=== PATIENT | male | born 1965 | race Caucasian/White ===

== ENCOUNTER 2018-11-20 17:15 | Emergency (ER) | payer OTHER ==
--- NOTE | 2018-11-20 17:21 | PDOC ---
Rapid Medical Evaluation Time Seen by Provider: 11/20/18 17:20 Medical Evaluation: Allergies Allergy/AdvReac Type Severity Reaction Status Date / Time No Known Allergies Allergy Verified 11/20/18 17:19 11/20/18 17:20 I have performed a brief in-person evaluation of this patient. The patient presents with a chief complaint of: abrasion to L leg 2/2 injury yesterday, here because site "keeps bleeding", pmhx unclear Pertinent physical exam findings:abrasion to L leg, bleeding controlled I have ordered the following:nothing The patient will proceed to the ED for further evaluation Discharge Disposition - Diagnosis Leg abrasion Qualifiers: Encounter type: initial encounter Laterality: left Qualified Code(s): S80.812A - Abrasion, left lower leg, initial encounter - Referrals - Patient Instructions - Post Discharge Activity
[2018-11-20 17:22] VITALS: BP 141/87; PULSE 97; TEMP 97.7; BMI 66.1
--- NOTE | 2018-11-20 19:31 | PDOC ---
History of Present Illness - General Chief Complaint: Abrasion Stated Complaint: INJ TO LEFT LEG AND FOOT Time Seen by Provider: 11/20/18 17:20 History Source: Patient Exam Limitations: No Limitations Past History - Travel Traveled outside of the country in the last 30 days: No Close contact w/someone who was outside of country & ill: No - Past Medical History Allergies/Adverse Reactions: Allergies Allergy/AdvReac Type Severity Reaction Status Date / Time No Known Allergies Allergy Verified 11/20/18 17:19 Cardiac Disorders: Yes COPD: No - Immunization History Immunization Up to Date: (UNKNOWN) - Suicide/Smoking/Psychosocial Hx Smoking History: Never smoked Hx Alcohol Use: No Drug/Substance Use Hx: No Review of Systems - Review of Systems Able to Perform ROS?: Yes Comments:: 11/20/18 19:26 CONSTITUTIONAL: Absent: fever, chills, diaphoresis, generalized weakness, malaise, loss of appetite SKIN: Present: abrasion Absent: rash, itching, pallor HEMATOLOGIC/IMMUNOLOGIC: Present: easy bleeding Absent: easy bruising, lymphadenopathy, frequent infections NEUROLOGIC: Absent: headache, focal weakness or paresthesias, dizziness, unsteady gait, seizure, mental status changes, bladder or bowel incontinence PSYCHIATRIC: Absent: anxiety, depression, suicidal or homicidal ideation, hallucinations. Is the patient limited Brazilian proficient: No *Physical Exam - Vital Signs Last Vital Signs Temp Pulse Resp BP Pulse Ox 97.7 F 97 H 18 141/87 100 11/20/18 17:19 11/20/18 17:19 11/20/18 17:19 11/20/18 17:19 11/20/18 17:19 - Physical Exam Comments: 11/20/18 19:54 GENERAL: The patient is awake, alert, and fully oriented, in no acute distress. HEAD: Normal with no signs of trauma. EYES: Pupils equal, round and reactive to light, extraocular movements intact, sclera anicteric, conjunctiva clear. EXTREMITIES: Normal range of motion, no edema. NEUROLOGICAL: Normal speech, normal gait. PSYCH: Normal mood, normal affect. SKIN: Sub 0.5cm abrasion to the L lower medial leg with active bleeding. Bruising and swelling noted to the medial ankle. Warm, Dry, normal turgor, no rashes or lesions noted. Medical Decision Making - Medical Decision Making 11/20/18 19:58 The patient is a 53 y/o M with PMH of CAD, s/p stent placement on Plavix, who presents to the ER for a cut to his leg that won't stop bleeding. The patient states he dropped a wooden slate on his leg yesterday at work. He noticed a small cut at the time, cleaned it out and put a bandaid on it. Today he states that it was still bleeding so he came to the ER for evaluation. Pt states he is UTD on his tetanus shot. He also notes swelling/bruising to his left foot, but denies pain to the area A/P: Bleeding abrasion On exam, sub 0.5cm abrasion to the L medial lower leg actively bleeding Wound flushed under high pressure Surigicel applied to the area and then pressure dressing applied. MARISOL applied over wound and ankle to help with the swelling Tetanus UTD Pt instructed to continue taking his blood thinners despite the bleeding as the benefits of the medication outweighs the risks. DC home with wound care instructions *DC/Admit/Observation/Transfer Diagnosis at time of Disposition: Leg abrasion Qualifiers: Encounter type: initial encounter Laterality: left Qualified Code(s): S80.812A - Abrasion, left lower leg, initial encounter - Discharge Dispostion Disposition: HOME Condition at time of disposition: Stable Decision to Admit order: No - Referrals Referrals: Kamari Islas MD [Staff Physician] - - Patient Instructions Printed Discharge Instructions: DI for Abrasion Additional Instructions: You were evaluated for the cut on her leg today. It is most likely still bleeding because of the blood thinners that you take. A special dressing was applied to the wound to stop the bleeding. Please leave it on for 24 hours and do not get it wet. Please keep your leg elevated while resting. The wound is small and does not require stitches. The swelling around the foot and ankle will improve over the next 1-2 weeks. Follow up with your primary care doctor this week. Return to the ER for breakthrough bleeding despite pressure dressing, lightheadedness, dizziness or if you have any changes in your symptoms. usted fue evaluado para el humlbe en cr jono cunningham. Lo ms probable es que an est sangrando debido a los anticoagulantes que usted joseph. Se aplic un apsito especial a la herida para detener el sangrado. Por favor, djalo encendido edie 24 horas y no lo mojes. Por favor, mantenga la pierna elevada mientras descansa. La herida es pequea y no requiere puntadas. La hinchazn alrededor del pie y el tobillo mejorar en las prximas 1-2 semanas. Sigue a tu mdico de cabecera esta semana. Regrese a la ER para sangrado por ruptura a pesar del vendaje de presin, aturdimiento, mareo o si tiene algn cambio en mari sntomas. Print Language: OCCITAN - Post Discharge Activity Forms/Work/School Notes: Back to Work
== END 2018-11-20 20:13 | disposition home or self-care (01) ==
LOC: JERFT 17:15
DX: S80.812A Abrasion, left lower leg, initial encounter (principal); X58.XXXA Exposure to other specified factors, initial encounter; Y93.89 Activity, other specified; Y92.89 Other specified places as the place of occurrence of the external cause
CPT/HCPCS: 99281-25

== ENCOUNTER 2023-07-20 15:41 | Emergency (ER) | payer OTHER ==
[2023-07-20 16:21] VITALS: BP 150/82; PULSE 103; RESP 18; TEMP 97.6; BMI 34.2
[2023-07-20] MEDS ORDERED: LORATADINE 10 MG TABLET PO ONE (17:37)
[2023-07-20] MEDS ORDERED: LORATADINE 10 MG TABLET ONE (17:41)
== END 2023-07-20 18:32 | disposition home or self-care (01) ==
LOC: JERFT 15:41
DX: R09.81 Nasal congestion (principal); B97.4 Respiratory syncytial virus as the cause of diseases classified elsewhere; J31.0 Chronic rhinitis; Z20.822 Contact with and (suspected) exposure to COVID-19
CPT/HCPCS: 0241U-QW; 71046-TC-FY; 99284-25